=== PATIENT | female | born 1965 | race Asian ===

== ENCOUNTER → 2020-08-26 | Outpatient (CLI) | payer BC, OTHER ==
--- NOTE | 2020-08-26 12:40 | Diagnostic Imaging Report ---
INDICATION: Bilateral breast pain, particularly in the region of the nipples. There is also pain in the right axilla. Evaluation of the upper and lower quadrants as well as retroareolar regions of both breasts was performed. In addition, the axillary regions were evaluated. No sonographic abnormality is identified. No solid or cystic mass is detected. IMPRESSION: Unremarkable bilateral breast ultrasound. No sonographic abnormality is detected. Dictated by: Dictated on workstation # [id number]
== END ==
LOC: RAD 10:53
PROVIDERS: ATTEND Obstetrics & Gynecology
DX: N63.10 Unspecified lump in the right breast, unspecified quadrant (principal)